=== PATIENT | male | born 1950 | race Caucasian/White ===

== ENCOUNTER → 2017-05-31 | Day surgery (SDC) | payer MEDICARE, BC ==
[~2017-05-31] VITALS: Ht 175.2 cm; Wt 104.3 kg
[~2017-05-31] MED LIST: GLUCOTROL10 MG PO; LEVEMIR100 UNIT/1 SC; LISINOPRIL20 MG PO; LODINE XL 400M400 MG PO; METFORMIN1000 MG PO; PRAVASTATIN SOD20 MG PO
--- NOTE | ~2017-05-31 | O ---
[place], [place] OPERATIVE NOTE NAME: MENDEL BASS UNIT #: [id number] ROOM: DOCTOR: KLAUDIA MACIAS MD BIRTHDATE: [birth year] DOS: 05/31/2017 PREOPERATIVE DIAGNOSIS: Cataract, left eye. POSTOPERATIVE DIAGNOSIS: Cataract, left eye. OPERATION: Extracapsular cataract extraction by phacoemulsification with posterior chamber intraocular lens implantation, left eye. ANESTHESIA: Monitored standby. OPERATIVE FINDINGS AND PROCEDURE: 2% Xylocaine topical anesthetic gel was applied to the eye in the preop area. The patient was taken to the operating room and prepped and draped in the standard fashion for sterile intraocular surgery. A time out procedure was performed verifying correct patient, correct site and corrects lens with Abel Macias M.D. The operating microscope was swung into position and the lid speculum was inserted. Using a Alyson paracentesis blade, a paracentesis was made through clear cornea. Viscoelastic was used to fill the anterior chamber. Using a metal keratome a 2.4 mm self-sealing clear corneal cataract incision was made temporally at the limbus. Using a pre-bent 25 gauge cystotome needle, a standard continuous curvilinear capsulorrhexis was performed. The anterior capsule was removed with forceps. The lens nucleus was hydrodissected and phacoemulsified in the posterior chamber. Cortical material was removed with the irrigation aspiration hand piece and the posterior capsule was then polished with a curet under irrigation. The posterior chamber and capsular bag were filled with viscoelastic. A posterior chamber intraocular lens manufactured by: [employer], Model #[id number] and 22.5 diopters in strength were then inserted into the posterior chamber and within the capsular bag using the lens cartridge and injector system. Viscoelastic was removed using the irrigation aspiration handpiece. The anterior chamber was filled with balanced salt solution through the paracentesis. Both the paracentesis site and cataract incisions were hydrated with BSS and verified to be water-tight and self-sealing. Cefuroxime 1 mg/0.1 mL was injected into the anterior chamber through the paracentesis site. The incision checked to be water-tight using a Weck-Louise sponge. The integrity of the cataract wound and ocular tension were checked. Lid speculum and drapes were removed. The patient was transferred from the operating room to the recovery room in satisfactory condition. [place], [place] OPERATIVE NOTE NAME: MENDEL BASS UNIT #: [id number] ROOM: DOCTOR: KLAUDIA MACIAS MD BIRTHDATE: [birth year] KLAUDIA MACIAS MD CM:OPRECORD:OPERATIVE NOTE [id number] KLAUDIA MACIAS MD 05/31/17 1010 interface
[2017-05-31 08:30] VITALS: BP 128/82
[2017-05-31 09:36] VITALS: BP 121/74
[2017-05-31 09:50] VITALS: BP 119/64
[2017-05-31 10:03] VITALS: BP 115/60
== END | disposition home or self-care (01) ==
LOC: SDC 05-24 10:15
DX: H26.9 Unspecified cataract (principal); E11.36 Type 2 diabetes mellitus with diabetic cataract; I10 Essential (primary) hypertension; Z87.891 Personal history of nicotine dependence; E78.5 Hyperlipidemia, unspecified; K21.9 Gastro-esophageal reflux disease without esophagitis; Z79.84 Long term (current) use of oral hypoglycemic drugs

== ENCOUNTER → 2017-07-05 | Day surgery (SDC) | payer MEDICARE, BC ==
[~2017-07-05] VITALS: Ht 180.3 cm; Wt 99.8 kg
--- NOTE | ~2017-07-05 | O ---
[place], [place] OPERATIVE NOTE NAME: MENDEL BASS UNIT #: [id number] ROOM: DOCTOR: KLAUDIA MACIAS MD BIRTHDATE: [birth year] DOS: 07/05/2017 PREOPERATIVE DIAGNOSIS: Cataract, right eye. POSTOPERATIVE DIAGNOSIS: Cataract, right eye. OPERATION: Extracapsular cataract extraction by phacoemulsification with posterior chamber intraocular lens implantation, right eye. ANESTHESIA: Monitored standby. OPERATIVE FINDINGS AND PROCEDURE: 2% Xylocaine topical anesthetic gel was applied to the eye in the preop area. The patient was taken to the operating room and prepped and draped in the standard fashion for sterile intraocular surgery. A time out procedure was performed verifying correct patient, correct site and corrects lens with Abel Macias M.D. The operating microscope was swung into position and the lid speculum was inserted. Using a Alyson paracentesis blade, a paracentesis was made through clear cornea. Viscoelastic was used to fill the anterior chamber. Using a metal keratome a 2.4 mm self-sealing clear corneal cataract incision was made temporally at the limbus. Using a pre-bent 25 gauge cystotome needle, a standard continuous curvilinear capsulorrhexis was performed. The anterior capsule was removed with forceps. The lens nucleus was hydrodissected and phacoemulsified in the posterior chamber. Cortical material was removed with the irrigation aspiration hand piece and the posterior capsule was then polished with a curet under irrigation. The posterior chamber and capsular bag were filled with viscoelastic. A posterior chamber intraocular lens manufactured by: [employer], Model #[id number], and 21.5 diopters in strength were then inserted into the posterior chamber and within the capsular bag using the lens cartridge and injector system. Viscoelastic was removed using the irrigation aspiration handpiece. The anterior chamber was filled with balanced salt solution through the paracentesis. Both the paracentesis site and cataract incisions were hydrated with BSS and verified to be water-tight and self-sealing. Cefuroxime 1 mg/0.1 mL was injected into the anterior chamber through the paracentesis site. The incision checked to be water-tight using a Weck-Louise sponge. The integrity of the cataract wound and ocular tension were checked. Lid speculum and drapes were removed. The patient was transferred from the operating room to the recovery room in satisfactory condition. DATE OF OPERATION 07/05/2017 standard cataract and posterior chamber intraocular lens of [employer] [id number], and 21.5 diopters right eye. [place], [place] OPERATIVE NOTE NAME: MENDEL BASS UNIT #: [id number] ROOM: DOCTOR: KLAUDIA MACIAS MD BIRTHDATE: [birth year] KLAUDIA MACIAS MD CM:OPRECORD:OPERATIVE NOTE [id number] KLAUDIA MACIAS MD 07/05/17 1210 interface
[2017-07-05 08:30] VITALS: BP 137/78
[2017-07-05 10:05] VITALS: BP 154/88
[2017-07-05 10:20] VITALS: BP 159/79
[2017-07-05 10:35] VITALS: BP 139/81
== END | disposition home or self-care (01) ==
LOC: SDC 06-30 09:30
DX: E11.36 Type 2 diabetes mellitus with diabetic cataract (principal); I10 Essential (primary) hypertension; Z87.891 Personal history of nicotine dependence; E78.5 Hyperlipidemia, unspecified; Z79.899 Other long term (current) drug therapy; Z79.84 Long term (current) use of oral hypoglycemic drugs; Z98.890 Other specified postprocedural states; E66.9 Obesity, unspecified; Z68.30 Body mass index [BMI] 30.0-30.9, adult

== ENCOUNTER → 2018-07-30 | Outpatient (CLI) | payer MEDICARE, BC | END | disposition home or self-care (01) | LOC: US 09:16 | DX: Z13.6 Encounter for screening for cardiovascular disorders (principal) ==

== ENCOUNTER → 2018-08-15 | Outpatient (CLI) | payer MEDICARE, BC | END | disposition home or self-care (01) | LOC: RESCLI 01:29 | DX: I10 Essential (primary) hypertension (principal); E78.2 Mixed hyperlipidemia; E11.65 Type 2 diabetes mellitus with hyperglycemia; M17.9 Osteoarthritis of knee, unspecified; B35.1 Tinea unguium; Z79.4 Long term (current) use of insulin; Z79.899 Other long term (current) drug therapy ==

== ENCOUNTER → 2018-11-28 | Outpatient (CLI) | payer MEDICARE, BC | END | disposition home or self-care (01) | LOC: RESCLI 01:10 | DX: Z12.11 Encounter for screening for malignant neoplasm of colon (principal); M17.9 Osteoarthritis of knee, unspecified; E78.2 Mixed hyperlipidemia; I10 Essential (primary) hypertension; E11.65 Type 2 diabetes mellitus with hyperglycemia; Z79.899 Other long term (current) drug therapy; Z88.8 Allergy status to other drugs, medicaments and biological substances ==

== ENCOUNTER → 2019-03-21 | Outpatient (CLI) | payer MEDICARE, BC | END | disposition home or self-care (01) | LOC: CARD 13:55 | DX: R00.2 Palpitations (principal) ==

== ENCOUNTER → 2019-06-04 | Outpatient (CLI) | payer MEDICARE, BC ==
[2019-06-04 13:20] LABS: BASO % 0.4 % (0.0-1.0); EOS # 0.3 10*3/uL (0.0-0.4); EOS % 3.7 % (1.0-4.0); HEMATOCRIT 42.3 % (42.0-52.0); LYMPH # 2.3 10*3/uL (1.3-4.4); LYMPH % 34.7 % (27.0-41.0); MEAN CELL VOLUME 88.5 fl (80.0-94.0); MEAN CORPUSCULAR HGB 29.3 pg (27.0-31.0); MEAN CORPUSCULAR HGB CONC 33.1 g/dl (33.0-37.0); MONO # 0.5 10*3/uL (0.1-1.0); MONO % 7.4 % (3.0-9.0); NEUT # 3.6 10*3/uL (2.3-7.9); NEUT % 53.5 % (47.0-73.0); PLATELET COUNT AUTOMATED 183 10*3/uL (130-400); RED BLOOD COUNT 4.78 10*6/uL (4.50-5.90); RED CELL DISTRI WIDTH 13.2 % (0-14.5); WHITE BLOOD COUNT 6.7 10*3/uL (4.8-10.8)
[2019-06-04 13:47] LABS: ALBUMIN 3.8 gm/dl (3.1-4.5); ALKALINE PHOSPHATASE 76 U/L (45-117); BUN 32 mg/dl (7-24); CHLORIDE 106 mmol/L (98-107); CHOLESTEROL 178 mg/dL (<200); CREATININE 1.06 mg/dL (0.70-1.30); HDL CHOLESTEROL 30 mg/dl (40-60); LDL CHOLESTEROL 111 mg/dL (9-159); POTASSIUM 4.3 mmol/L (3.5-5.1); SGOT/AST 27 IU/L (3-35); SGPT/ALT 26 U/L (12-78); SODIUM 138 mmol/L (136-145); TOTAL PROTEIN 8.3 gm/dL (6.4-8.2); TRIGLYCERIDES 186 mg/dl (<150); VLDL CHOLESTEROL 37 mg/dL (6-40)
[2019-06-04 14:09] LABS: BILIRUBIN 2+ (NEGATIVE); BLOOD NEGATIVE (NEGATIVE); CLARITY CLEAR (CLEAR); COLOR YELLOW (YELLOW); GLUCOSE 1+ (NEGATIVE); KETONE NEGATIVE (NEGATIVE); LEUKO ESTERASE NEGATIVE (NEGATIVE); NITRITE NEGATIVE (NEGATIVE); UROBILINOGEN 0.2 E.U./dl (0.2-1.0)
[2019-06-04 14:34] LABS: BACTERIA TRACE; MUCOUS 2+
== END | disposition home or self-care (01) ==
LOC: RESCLI 01:30
PROVIDERS: Internal Medicine
DX: Z23 Encounter for immunization (principal); E11.65 Type 2 diabetes mellitus with hyperglycemia; E78.1 Pure hyperglyceridemia; I10 Essential (primary) hypertension; E78.2 Mixed hyperlipidemia; M17.9 Osteoarthritis of knee, unspecified; F41.9 Anxiety disorder, unspecified; Z79.4 Long term (current) use of insulin; Z79.899 Other long term (current) drug therapy

== ENCOUNTER → 2019-08-15 | Outpatient (CLI) | payer MEDICARE, BC | END | disposition home or self-care (01) | LOC: RESCLI 01:21 | DX: M17.9 Osteoarthritis of knee, unspecified (principal); I10 Essential (primary) hypertension; E78.2 Mixed hyperlipidemia; E11.65 Type 2 diabetes mellitus with hyperglycemia; E66.01 Morbid (severe) obesity due to excess calories; Z68.33 Body mass index [BMI] 33.0-33.9, adult; Z79.899 Other long term (current) drug therapy ==

== ENCOUNTER → 2019-09-16 | Outpatient (CLI) | payer MEDICARE, BC | LOC: CARD 09:45 | DX: R00.0 Tachycardia, unspecified (principal); I49.40 Unspecified premature depolarization ==

== ENCOUNTER → 2019-09-30 | Outpatient (CLI) | payer MEDICARE, BC | END | disposition home or self-care (01) | LOC: CARD 00:19 | DX: I70.0 Atherosclerosis of aorta (principal); I49.40 Unspecified premature depolarization ==

== ENCOUNTER → 2019-10-15 | Outpatient (CLI) | payer MEDICARE, BC ==
[~2019-10-15] MED LIST changes: +GEMFIBROZIL600 MG PO; +NOVOLOG100 UNIT/1 SQ; +TERBINAFINE250 MG PO
--- NOTE | 2019-10-15 07:16 | NUR ---
INFORMED CONSENT SIGNED FOR LEXISCAN STRESS TEST WITH DR. NGUYEN. RESTING EKG NSR WITH PVC'S, HR 78, BP 130/64. PULSE OX 93% AND LUNGS CLEAR. COMPLETED ONE MINUTE OF LEXISCAN RECEIVING LEXISCAN 0.4MG OVER [address] CHANGES NOTED, PVC'S LESS FREQUENT WITH LEXISCAN. PT C/O BELLY CRAMPING. LAST RECOVERY HR 96, BP 135/68. WAITING NUCLEAR SCANNING IN STABLE CONDITION.
== END | disposition home or self-care (01) ==
LOC: CARD 00:12
DX: R00.2 Palpitations (principal); I49.40 Unspecified premature depolarization; R94.31 Abnormal electrocardiogram [ECG] [EKG]

== ENCOUNTER 2020-01-09 14:17 | Observation (INO) | payer MEDICARE, BC ==
[~2020-01-09] VITALS: Ht 180.3 cm; Wt 108.0 kg
[2020-01-09 12:10] LABS: BASO % 0.5 % (0.0-1.0); EOS # 0.2 10*3/uL (0.0-0.4); EOS % 3.2 % (1.0-4.0); HEMATOCRIT 42.7 % (42.0-52.0); LYMPH # 2.4 10*3/uL (1.3-4.4); LYMPH % 42.8 % (27.0-41.0); MEAN CELL VOLUME 90.3 fl (80.0-94.0); MEAN CORPUSCULAR HGB 28.5 pg (27.0-31.0); MEAN CORPUSCULAR HGB CONC 31.6 g/dl (33.0-37.0); MEAN PLATELET VOLUME 12.2 fl (9.6-12.3); MONO # 0.5 10*3/uL (0.1-1.0); MONO % 8.2 % (3.0-9.0); NEUT # 2.5 10*3/uL (2.3-7.9); NEUT % 45.1 % (47.0-73.0); PLATELET COUNT AUTOMATED 175 10*3/uL (130-400); RED BLOOD COUNT 4.73 10*6/uL (4.50-5.90); RED CELL DISTRI WIDTH 13.5 % (0-14.5); WHITE BLOOD COUNT 5.6 10*3/uL (4.8-10.8)
[2020-01-09 12:11] LABS: BILIRUBIN 2+ (NEGATIVE); CLARITY SL CLOUDY (CLEAR); COLOR YELLOW (YELLOW); GLUCOSE NEGATIVE (NEGATIVE)
[2020-01-09 12:12] LABS: BACTERIA 1+; BLOOD NEGATIVE (NEGATIVE); EPITHELIAL CELLS 0-2; KETONE NEGATIVE (NEGATIVE); LEUKO ESTERASE NEGATIVE (NEGATIVE); MUCOUS 1+; NITRITE NEGATIVE (NEGATIVE); UROBILINOGEN 0.2 E.U./dl (0.2-1.0)
[2020-01-09 12:31] LABS: ALBUMIN 3.6 gm/dl (3.1-4.5); CREATININE 1.43 mg/dL (0.70-1.30); TOTAL PROTEIN 8.3 gm/dL (6.4-8.2)
[2020-01-09 12:47] LABS: POTASSIUM 6.6 mmol/L (3.5-5.1)
[2020-01-09 14:01] LABS: VITAMIN D, 25-HYDROXY 18.5 ng/mL (30-100)
[2020-01-09 14:26] VITALS: BP 123/56
[2020-01-09 15:13] LABS: CREATININE 1.58 mg/dL (0.70-1.30); POTASSIUM 5.6 mmol/L (3.5-5.1)
[2020-01-09 15:27] LABS: CPK 57 U/L (39-308)
[2020-01-09 15:32] LABS: TROPONIN I < 0.015 ng/ml (<0.045)
[2020-01-09 16:10] VITALS: BP 124/60
[2020-01-09 16:30] VITALS: BP 143/70
[2020-01-09 20:00] VITALS: BP 146/75
[2020-01-10] VITALS: BP 145/75
[2020-01-10 06:11] LABS: BASO % 0.5 % (0.0-1.0); EOS # 0.2 10*3/uL (0.0-0.4); EOS % 2.9 % (1.0-4.0); HEMATOCRIT 38.1 % (42.0-52.0); LYMPH # 2.4 10*3/uL (1.3-4.4); LYMPH % 41.7 % (27.0-41.0); MEAN CELL VOLUME 92.5 fl (80.0-94.0); MEAN CORPUSCULAR HGB 29.6 pg (27.0-31.0); MEAN PLATELET VOLUME 12.1 fl (9.6-12.3); MONO # 0.5 10*3/uL (0.1-1.0); MONO % 8.6 % (3.0-9.0); NEUT # 2.7 10*3/uL (2.3-7.9); PLATELET COUNT AUTOMATED 146 10*3/uL (130-400); RED BLOOD COUNT 4.12 10*6/uL (4.50-5.90); RED CELL DISTRI WIDTH 13.6 % (0-14.5); WHITE BLOOD COUNT 5.8 10*3/uL (4.8-10.8)
[2020-01-10 06:26] LABS: ALBUMIN 3.3 gm/dl (3.1-4.5); ALKALINE PHOSPHATASE 63 U/L (45-117); BUN 30 mg/dl (7-24); CHLORIDE 111 mmol/L (98-107); CREATININE 1.17 mg/dL (0.70-1.30); POTASSIUM 5.1 mmol/L (3.5-5.1); SGOT/AST 27 IU/L (3-35); SGPT/ALT 26 U/L (12-78); SODIUM 139 mmol/L (136-145); TOTAL PROTEIN 7.6 gm/dL (6.4-8.2)
[2020-01-10 08:00] VITALS: BP 122/66
[2020-01-10 08:44] LABS: VITAMIN D, 25-HYDROXY 20.6 ng/mL (30-100)
[2020-01-11 10:03] LABS: CREATININE,URINE 162.8 mg/dL (Not Estab.)
== END 2020-01-10 10:42 | disposition home or self-care (01) ==
LOC: EDSTATUS 14:17 → ED 14:17 → 4E 15:45 → EDHOLD 15:45 → 4E 15:53
PROVIDERS: Emergency Medicine; Internal Medicine; Student in an Organized Health Care Education/Training Program; ADMIT Family Medicine
DX: N17.0 Acute kidney failure with tubular necrosis (principal); E87.8 Other disorders of electrolyte and fluid balance, not elsewhere classified; E55.9 Vitamin D deficiency, unspecified; R82.2 Biliuria; R82.71 Bacteriuria; M17.0 Bilateral primary osteoarthritis of knee; E11.65 Type 2 diabetes mellitus with hyperglycemia; I10 Essential (primary) hypertension; E78.5 Hyperlipidemia, unspecified

== ENCOUNTER → 2020-03-03 | Outpatient (CLI) | payer MEDICARE, BC ==
[2020-03-03 16:07] LABS: ALBUMIN 3.9 gm/dl (3.1-4.5); ALKALINE PHOSPHATASE 75 U/L (45-117); BUN 22 mg/dl (7-24); CHLORIDE 112 mmol/L (98-107); CREATININE 1.12 mg/dL (0.70-1.30); POTASSIUM 4.6 mmol/L (3.5-5.1); SGOT/AST 20 IU/L (3-35); SGPT/ALT 24 U/L (12-78); SODIUM 141 mmol/L (136-145); TOTAL PROTEIN 8.8 gm/dL (6.4-8.2)
== END | disposition home or self-care (01) ==
LOC: RESCLI 13:59
PROVIDERS: Internal Medicine
DX: E11.65 Type 2 diabetes mellitus with hyperglycemia (principal); E78.1 Pure hyperglyceridemia; I10 Essential (primary) hypertension; M17.9 Osteoarthritis of knee, unspecified; E55.9 Vitamin D deficiency, unspecified; E87.5 Hyperkalemia; F41.9 Anxiety disorder, unspecified; Z11.59 Encounter for screening for other viral diseases; Z79.899 Other long term (current) drug therapy; Z79.84 Long term (current) use of oral hypoglycemic drugs; Z85.828 Personal history of other malignant neoplasm of skin; Z98.890 Other specified postprocedural states; Z87.891 Personal history of nicotine dependence

== ENCOUNTER → 2020-07-22 | Outpatient (CLI) | payer MEDICARE, BC | END | disposition home or self-care (01) | LOC: RESCLI 00:26 | PROVIDERS: ATTEND Student in an Organized Health Care Education/Training Program | DX: E11.65 Type 2 diabetes mellitus with hyperglycemia (principal); E78.1 Pure hyperglyceridemia; Z79.84 Long term (current) use of oral hypoglycemic drugs; Z79.899 Other long term (current) drug therapy ==

== ENCOUNTER → 2020-07-23 | Outpatient (CLI) | payer MEDICARE, BC | END | disposition home or self-care (01) | LOC: LAB 09:01 | PROVIDERS: ATTEND Internal Medicine | DX: E11.65 Type 2 diabetes mellitus with hyperglycemia (principal) ==

== ENCOUNTER → 2020-10-02 | Outpatient (CLI) | payer MEDICARE, BC | END | disposition home or self-care (01) | LOC: RESCLI 06:44 | PROVIDERS: Internal Medicine; ATTEND Internal Medicine | DX: Z12.5 Encounter for screening for malignant neoplasm of prostate (principal); E11.65 Type 2 diabetes mellitus with hyperglycemia; E78.1 Pure hyperglyceridemia; Z68.33 Body mass index [BMI] 33.0-33.9, adult; Z79.899 Other long term (current) drug therapy; Z87.891 Personal history of nicotine dependence; Z98.890 Other specified postprocedural states ==

== ENCOUNTER → 2020-11-04 | Outpatient (CLI) | payer MEDICARE, BC | END | disposition home or self-care (01) | LOC: RESCLI 01:31 | PROVIDERS: ATTEND Emergency Medicine | DX: E78.1 Pure hyperglyceridemia (principal); K21.9 Gastro-esophageal reflux disease without esophagitis; E11.9 Type 2 diabetes mellitus without complications; I10 Essential (primary) hypertension; F41.9 Anxiety disorder, unspecified; Z79.899 Other long term (current) drug therapy; Z79.84 Long term (current) use of oral hypoglycemic drugs ==

== ENCOUNTER → 2021-01-15 | Outpatient (CLI) | payer MEDICARE, BC | END | disposition home or self-care (01) | LOC: RESCLI 00:53 | PROVIDERS: ATTEND Internal Medicine | DX: I10 Essential (primary) hypertension (principal); E78.1 Pure hyperglyceridemia; K21.9 Gastro-esophageal reflux disease without esophagitis; E55.9 Vitamin D deficiency, unspecified; E11.65 Type 2 diabetes mellitus with hyperglycemia; M17.9 Osteoarthritis of knee, unspecified; E78.5 Hyperlipidemia, unspecified; F41.9 Anxiety disorder, unspecified; Z79.84 Long term (current) use of oral hypoglycemic drugs; Z79.899 Other long term (current) drug therapy; Z87.891 Personal history of nicotine dependence ==

== ENCOUNTER → 2021-03-22 | Outpatient (CLI) | payer MEDICARE, BC ==
[2021-03-22 14:39] LABS: BASO % 0.3 % (0.0-1.0); EOS # 0.2 10*3/uL (0.0-0.4); EOS % 3.4 % (1.0-4.0); HEMATOCRIT 38.6 % (42.0-52.0); LYMPH # 1.9 10*3/uL (1.3-4.4); MEAN CORPUSCULAR HGB CONC 31.1 g/dl (33.0-37.0); MEAN PLATELET VOLUME 12.3 fl (9.6-12.3); MONO # 0.5 10*3/uL (0.1-1.0); MONO % 7.7 % (3.0-9.0); NEUT # 3.6 10*3/uL (2.3-7.9); NEUT % 58.3 % (47.0-73.0); PLATELET COUNT AUTOMATED 160 10*3/uL (130-400); RED BLOOD COUNT 4.29 10*6/uL (4.50-5.90); RED CELL DISTRI WIDTH 13.4 % (0-14.5); WHITE BLOOD COUNT 6.2 10*3/uL (4.8-10.8)
[2021-03-22 15:00] LABS: ALBUMIN 3.7 gm/dl (3.1-4.5); ALKALINE PHOSPHATASE 67 U/L (45-117); BUN 24 mg/dl (7-24); CHLORIDE 109 mmol/L (98-107); CHOLESTEROL 138 mg/dL (<200); CREATININE 1.39 mg/dL (0.70-1.30); LDL CHOLESTEROL 68 mg/dL (9-159); POTASSIUM 4.3 mmol/L (3.5-5.1); SGOT/AST 15 IU/L (3-35); SGPT/ALT 18 U/L (12-78); SODIUM 141 mmol/L (136-145); TOTAL PROTEIN 8.2 gm/dL (6.4-8.2); TRIGLYCERIDES 196 mg/dl (<150)
[2021-03-23 11:09] LABS: CREATININE,URINE 186.8 mg/dL (Not Estab.)
== END | disposition home or self-care (01) ==
LOC: RESCLI 00:51
PROVIDERS: Internal Medicine; ATTEND Internal Medicine Nephrology
DX: E11.65 Type 2 diabetes mellitus with hyperglycemia (principal); I10 Essential (primary) hypertension; E78.1 Pure hyperglyceridemia; E55.9 Vitamin D deficiency, unspecified; R01.1 Cardiac murmur, unspecified; K21.9 Gastro-esophageal reflux disease without esophagitis; M17.9 Osteoarthritis of knee, unspecified; E78.5 Hyperlipidemia, unspecified; Z79.84 Long term (current) use of oral hypoglycemic drugs; Z79.899 Other long term (current) drug therapy

== ENCOUNTER → 2021-04-06 | Outpatient (CLI) | payer MEDICARE, BC | END | disposition home or self-care (01) | LOC: CARD 13:00 | PROVIDERS: ATTEND Internal Medicine | DX: I35.8 Other nonrheumatic aortic valve disorders (principal); R01.1 Cardiac murmur, unspecified ==

== ENCOUNTER → 2021-06-28 | Outpatient (CLI) | payer MEDICARE, BC | END | disposition home or self-care (01) | LOC: RESCLI 00:49 | PROVIDERS: ATTEND Internal Medicine Nephrology | DX: E11.65 Type 2 diabetes mellitus with hyperglycemia (principal); M17.9 Osteoarthritis of knee, unspecified; I10 Essential (primary) hypertension; E78.1 Pure hyperglyceridemia; E78.5 Hyperlipidemia, unspecified; K21.9 Gastro-esophageal reflux disease without esophagitis; E55.9 Vitamin D deficiency, unspecified; Z87.891 Personal history of nicotine dependence; Z98.890 Other specified postprocedural states; Z79.84 Long term (current) use of oral hypoglycemic drugs; Z79.899 Other long term (current) drug therapy ==

== ENCOUNTER → 2021-09-27 | Outpatient (CLI) | payer OTHER | END | disposition home or self-care (01) | LOC: RESCLI 13:10 | PROVIDERS: ATTEND Internal Medicine Nephrology | DX: E11.65 Type 2 diabetes mellitus with hyperglycemia (principal); M17.9 Osteoarthritis of knee, unspecified; K21.9 Gastro-esophageal reflux disease without esophagitis; E78.1 Pure hyperglyceridemia; I10 Essential (primary) hypertension; F41.9 Anxiety disorder, unspecified; E55.9 Vitamin D deficiency, unspecified; E78.5 Hyperlipidemia, unspecified; Z87.891 Personal history of nicotine dependence; Z85.828 Personal history of other malignant neoplasm of skin; Z79.84 Long term (current) use of oral hypoglycemic drugs; Z79.899 Other long term (current) drug therapy ==

== ENCOUNTER → 2021-12-13 | Outpatient (CLI) | payer OTHER | END | disposition home or self-care (01) | LOC: RESCLI 03:40 | PROVIDERS: ATTEND Internal Medicine | DX: E11.65 Type 2 diabetes mellitus with hyperglycemia (principal); M17.9 Osteoarthritis of knee, unspecified; E78.1 Pure hyperglyceridemia; E55.9 Vitamin D deficiency, unspecified; K21.9 Gastro-esophageal reflux disease without esophagitis; R10.9 Unspecified abdominal pain; H61.23 Impacted cerumen, bilateral; Z12.11 Encounter for screening for malignant neoplasm of colon; I10 Essential (primary) hypertension; Z79.899 Other long term (current) drug therapy ==

== ENCOUNTER → 2022-05-10 | Outpatient (CLI) | payer OTHER | END | disposition home or self-care (01) | LOC: RESCLI 02:00 | PROVIDERS: ATTEND Internal Medicine | DX: E11.65 Type 2 diabetes mellitus with hyperglycemia (principal); I10 Essential (primary) hypertension; E78.2 Mixed hyperlipidemia; E78.1 Pure hyperglyceridemia; K21.9 Gastro-esophageal reflux disease without esophagitis; M17.9 Osteoarthritis of knee, unspecified; E55.9 Vitamin D deficiency, unspecified; R10.9 Unspecified abdominal pain; R80.9 Proteinuria, unspecified; Z87.891 Personal history of nicotine dependence; Z98.890 Other specified postprocedural states; Z79.84 Long term (current) use of oral hypoglycemic drugs; Z79.899 Other long term (current) drug therapy ==

== ENCOUNTER 2022-08-11 20:03 | Emergency (ER) | payer OTHER ==
[~2022-08-11] VITALS: Ht 175.2 cm; Wt 101.2 kg
[2022-08-11 20:12] VITALS: BP 202/80
[2022-08-11 20:59] LABS: POTASSIUM 5.3 mmol/L (3.4-5.1); TOTAL PROTEIN 7.7 gm/dL (6.0-8.0)
== END 2022-08-11 22:03 | disposition home or self-care (01) ==
LOC: ED 20:03
PROVIDERS: Emergency Medicine
DX: E87.5 Hyperkalemia (principal); Z87.891 Personal history of nicotine dependence; Z98.890 Other specified postprocedural states; Z79.899 Other long term (current) drug therapy

== ENCOUNTER → 2022-08-30 | Outpatient (CLI) | payer OTHER ==
[2022-08-30 16:07] LABS: POTASSIUM 5.7 mmol/L (3.4-5.1)
== END | disposition home or self-care (01) ==
LOC: LAB 01:02 → US 15:00 → LAB 15:00
PROVIDERS: ATTEND Internal Medicine
DX: N28.1 Cyst of kidney, acquired (principal); N17.9 Acute kidney failure, unspecified; E87.5 Hyperkalemia

== ENCOUNTER 2023-05-02 00:34 | Inpatient (IN) | payer OTHER ==
[2023-05-02] VITALS (8 sets, daily range): BP systolic 135–173; BP diastolic 69–112
[~2023-05-02] VITALS: Ht 175.2 cm; Wt 99.1 kg
[2023-05-02 01:10] LABS: BASO % 0.6 % (0.0-1.0); EOS # 0.2 10*3/uL (0.0-0.4); EOS % 2.8 % (1.0-4.0); HEMATOCRIT 39.9 % (42.0-52.0); LYMPH # 2.6 10*3/uL (1.3-4.4); LYMPH % 37.2 % (27.0-41.0); MEAN CORPUSCULAR HGB 28.2 pg (27.0-31.0); MEAN CORPUSCULAR HGB CONC 32.8 g/dl (33.0-37.0); MEAN PLATELET VOLUME 12.1 fl (9.6-12.3); MONO # 0.6 10*3/uL (0.1-1.0); MONO % 8.7 % (3.0-9.0); NEUT # 3.5 10*3/uL (2.3-7.9); NEUT % 50.4 % (47.0-73.0); PLATELET COUNT AUTOMATED 177 10*3/uL (130-400); RED BLOOD COUNT 4.64 10*6/uL (4.50-5.90); WHITE BLOOD COUNT 6.9 10*3/uL (4.8-10.8)
[2023-05-02 01:33] LABS: POTASSIUM 4.5 mmol/L (3.4-5.1); TOTAL PROTEIN 8.3 gm/dL (6.0-8.0)
[2023-05-02 06:23] LABS: BASO # 0.1 10*3/uL (0.0-0.1); BASO % 0.7 % (0.0-1.0); EOS # 0.2 10*3/uL (0.0-0.4); EOS % 2.4 % (1.0-4.0); HEMATOCRIT 39.2 % (42.0-52.0); LYMPH # 2.2 10*3/uL (1.3-4.4); LYMPH % 29.7 % (27.0-41.0); MEAN CELL VOLUME 88.3 fl (80.0-94.0); MEAN CORPUSCULAR HGB 28.4 pg (27.0-31.0); MEAN CORPUSCULAR HGB CONC 32.1 g/dl (33.0-37.0); MEAN PLATELET VOLUME 12.9 fl (9.6-12.3); MONO # 0.6 10*3/uL (0.1-1.0); NEUT # 4.4 10*3/uL (2.3-7.9); NEUT % 58.7 % (47.0-73.0); PLATELET COUNT AUTOMATED 161 10*3/uL (130-400); RED BLOOD COUNT 4.44 10*6/uL (4.50-5.90); WHITE BLOOD COUNT 7.5 10*3/uL (4.8-10.8)
[2023-05-02 06:49] LABS: FREE T4 0.86 ng/dl (0.89-1.76); POTASSIUM 4.7 mmol/L (3.4-5.1); TOTAL PROTEIN 7.7 gm/dL (6.0-8.0)
[2023-05-02 07:51] LABS: VITAMIN D, 25-HYDROXY 53.9 ng/mL (30-100)
[2023-05-03] VITALS: BP 158/84
[2023-05-03 06:14] LABS: POTASSIUM 4.7 mmol/L (3.4-5.1)
[2023-05-03 06:36] LABS: BASO % 0.5 % (0.0-1.0); EOS # 0.2 10*3/uL (0.0-0.4); EOS % 2.5 % (1.0-4.0); HEMATOCRIT 39.9 % (42.0-52.0); LYMPH # 2.2 10*3/uL (1.3-4.4); LYMPH % 33.6 % (27.0-41.0); MEAN CELL VOLUME 88.3 fl (80.0-94.0); MEAN CORPUSCULAR HGB 27.7 pg (27.0-31.0); MEAN CORPUSCULAR HGB CONC 31.3 g/dl (33.0-37.0); MEAN PLATELET VOLUME 12.9 fl (9.6-12.3); MONO # 0.5 10*3/uL (0.1-1.0); MONO % 8.1 % (3.0-9.0); NEUT # 3.6 10*3/uL (2.3-7.9); PLATELET COUNT AUTOMATED 178 10*3/uL (130-400); RED BLOOD COUNT 4.52 10*6/uL (4.50-5.90); RED CELL DISTRI WIDTH 13.9 % (0-14.5); WHITE BLOOD COUNT 6.5 10*3/uL (4.8-10.8)
[2023-05-03 08:00] VITALS: BP 156/79
[2023-05-03 12:00] VITALS: BP 140/67
[2023-05-03] MEDS ORDERED: METOPROLOL SUCC50 M1 PO (14:39)
[2023-05-03] MEDS ORDERED: ATORVASTATIN CA40 M1 PO (14:39)
[2023-05-03] MEDS ORDERED: ASPIRIN ADULT L81 M2 PO (14:55)
== END 2023-05-03 15:25 | disposition short-term general hospital (02) | DRG 281 ==
LOC: ED 00:34 → EDHOLD 04:22 → 5E 04:22
PROVIDERS: Internal Medicine; Student in an Organized Health Care Education/Training Program; ADMIT Internal Medicine; ATTEND Internal Medicine
DX: I21.4 Non-ST elevation (NSTEMI) myocardial infarction (principal); I48.92 Unspecified atrial flutter; I48.0 Paroxysmal atrial fibrillation; I25.10 Atherosclerotic heart disease of native coronary artery without angina pectoris; I13.10 Hypertensive heart and chronic kidney disease without heart failure, with stage 1 through stage 4 chronic kidney disease, or unspecified chronic kidney disease; N18.32 Chronic kidney disease, stage 3b; D64.9 Anemia, unspecified; E78.5 Hyperlipidemia, unspecified; M17.11 Unilateral primary osteoarthritis, right knee; I49.3 Ventricular premature depolarization; E11.65 Type 2 diabetes mellitus with hyperglycemia; Z96.652 Presence of left artificial knee joint; Z79.899 Other long term (current) drug therapy; Z79.4 Long term (current) use of insulin; Z79.84 Long term (current) use of oral hypoglycemic drugs; Z98.42 Cataract extraction status, left eye; Z98.41 Cataract extraction status, right eye; Z87.891 Personal history of nicotine dependence; Z81.1 Family history of alcohol abuse and dependence; Z83.3 Family history of diabetes mellitus; Z82.49 Family history of ischemic heart disease and other diseases of the circulatory system

== ENCOUNTER → 2023-06-07 | Outpatient (CLI) | payer OTHER ==
[~2023-06-07] MED LIST changes: +ASPIRIN ADULT L81 M2 PO; +ATORVASTATIN CA40 M1 PO; +METOPROLOL SUCC50 M1 PO
== END | disposition home or self-care (01) ==
LOC: RAD 12:14
PROVIDERS: ATTEND Physician Assistant Surgical
DX: J90 Pleural effusion, not elsewhere classified (principal); I51.7 Cardiomegaly; Z95.1 Presence of aortocoronary bypass graft

== ENCOUNTER → 2023-07-11 | Outpatient (CLI) | payer OTHER | END | disposition home or self-care (01) | LOC: RESCLI 00:45 | PROVIDERS: ATTEND Emergency Medicine | DX: I25.10 Atherosclerotic heart disease of native coronary artery without angina pectoris (principal); M17.9 Osteoarthritis of knee, unspecified; E11.65 Type 2 diabetes mellitus with hyperglycemia; E59 Dietary selenium deficiency; I10 Essential (primary) hypertension; K21.9 Gastro-esophageal reflux disease without esophagitis; E78.2 Mixed hyperlipidemia; Z98.890 Other specified postprocedural states; Z79.82 Long term (current) use of aspirin; Z79.84 Long term (current) use of oral hypoglycemic drugs; Z79.899 Other long term (current) drug therapy ==

== ENCOUNTER → 2024-03-13 | Outpatient (CLI) | payer OTHER ==
[2024-03-13 13:17] LABS: POTASSIUM 5.9 mmol/L (3.4-5.1); TOTAL PROTEIN 7.9 gm/dL (6.0-8.0)
== END | disposition home or self-care (01) ==
LOC: LAB 12:25
PROVIDERS: ATTEND Orthopaedic Surgery
DX: N18.30 Chronic kidney disease, stage 3 unspecified (principal); E87.5 Hyperkalemia